=== PATIENT | male | born 1935 | race Caucasian/White ===

== ENCOUNTER 2016-12-14 12:34 | Outpatient (CLI) | payer MEDICARE ==
--- NOTE | 2016-12-14 16:40 | CT ---
CT CERVICAL SPINE NONCONTRAST 12/14/16 HISTORY: Cervical fracture. Abnormal MRI and radiographs. COMPARISON: MRI from [facility] dated 11/23/16. FINDINGS: Posterior displacement of C1 on C2 results in the anterior C1 arch dislocated posteriorly to the exp ected location of the odontoid process. The odontoid process is displaced superiorly and just to the right of midline, now in horizontal orientation. All ununited fracture margins are well corticated. There is compression of the cervicomedullary junction of the spinal cord, narrowed to 0.[address] AP diameter. Bulky ossific bridging is present about the ununited fracture. Disc space narrowing and osteophytosis are present throughout the cervical spine. Cervicothoracic ju nction is intact. There is calcification in the carotid bifurcations. IMPRESSION: 1. 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 Resultant compression of the cervicomedullary junction of the spinal cord is present. Findings correlate with those from recent MRI. No acute fractures are evident. 2. Prominent multilevel degenerative changes throughout the cervical spine. POS: [facility]
== END 2016-12-14 12:35 | disposition home or self-care (01) ==
LOC: TBSIIMAG 12:34
PROVIDERS: ATTEND Neurological Surgery
DX: S12.9XXA Fracture of neck, unspecified, initial encounter (principal); M47.812 Spondylosis without myelopathy or radiculopathy, cervical region
CPT/HCPCS: 72125

== ENCOUNTER 2017-01-03 09:01 | Outpatient (CLI) | payer MEDICARE ==
--- NOTE | 2017-01-03 13:26 | EKG ---
Test Reason : Blood Pressure : / mmHG Vent. Rate : 060 BPM Atrial Rate : 060 BPM P-R Int : 190 ms QRS Dur : 094 ms QT Int : 408 ms P-R-T Axes : 066 -38 025 degrees QTc Int : 408 ms Normal sinus rhythm with sinus arrhythmia Left axis deviation Cannot rule out Anterior infarct , age undetermined Poor anterior R wave progression Abnormal ECG When compared with ECG of 16-MAY-2013 03:15, No significant change was found Confirmed by DR. Vianey REZA (3) on 01/03/2017 1:26:18 PM Referred By: TNE Confirmed By:DR. Vianey REZA
== END 2017-01-03 09:02 | disposition home or self-care (01) ==
LOC: LABBT 09:01
PROVIDERS: ATTEND Neurological Surgery
DX: Z01.818 Encounter for other preprocedural examination (principal); M47.12 Other spondylosis with myelopathy, cervical region
CPT/HCPCS: 93005; 93010

== ENCOUNTER 2017-01-08 05:49 | Day surgery (SDC) | payer MEDICARE ==
[2017-01-03 09:25] VITALS: BMI 21.8
--- NOTE | 2017-01-07 23:19 | HP ---
HISTORY OF PRESENT ILLNESS: Mr. Mcnamara is an 81-year-old man referred to us by Dr. Graham for evaluatio n of cervical spondylosis and myelopathy. Over the last 6-8 months, he has had slowly progressing b ilateral finger numbness and clumsiness. He is also starting to note to lose ability to button aditi ts. He has had progressive balance trouble for the past several years. He has an MRI scan from [facility] reveals chronic fracture of the odontoid process of C2 which looks to be a type 1 fract ure. There has been posterior translation of the fracture site causing severe canal stenosis of the craniocervical junction very indicative of the symptoms that he is experiencing. He has not had any injections or any other treatment, but given the severity of his pathology, I do not believe that I would push for any specific therapy other than the surgical approach and he is understanding of this. PHYSICAL EXAMINATION: He has a positive Keli sign bilaterally. He has weakness in the bilatera l hands, particularly in the opposition of fourth and fifth digits of the hands bilaterally. He has a mostly normal gait with minimal unsteadiness noted. PAST MEDICAL HISTORY: Dupuytrens contracture, basal cell carcinoma, hyperlipidemia, and hypertensio n. MEDICATIONS: Simvastatin, amlodipine, aspirin, latanoprost, and Combigan. ALLERGIES: No known medication allergies. ASSESSMENT: Cervical myelopathy and chronic C2 odontoid fracture. PLAN: Dr. Lake met with the patient, reviewed his imaging and symptoms and ultimately advocated fo r a posterior C1 decompression. He explained to the patient the risks, benefits, and alternatives t o the procedure. The patient expressed understanding and would like to move forward with surgery as discussed. I do believe the patient is mentally competent and capable of making medical decisions for himself and we will move forward with surgery as planned.
[2017-01-08] MEDS ORDERED: CEFAZOLIN/Water 2 GM/20 ML SYRINGE ONE ×2 (06:22→12:13)
[2017-01-08] MEDS ORDERED: Thrombin 5000 UNITS/5 ML VIAL ONE (06:27)
[2017-01-08] MEDS ORDERED: Bacitracin Zinc Ointment 30 gm TUBE ONE (06:27)
[2017-01-08] MEDS ORDERED: Ondansetron HCl/PF 4 MG/2 ML Vial ONE (07:04)
[2017-01-08] MEDS ORDERED: Dexamethasone 20 MG/5 ML VIAL ONE (07:04)
[2017-01-08] MEDS ORDERED: Glycopyrrolate 0.2 MG/ML 5 ML SYRINGE ONE (07:04)
[2017-01-08] MEDS ORDERED: Propofol 200 MG/20 ML VIAL ONE (07:04)
[2017-01-08] MEDS ORDERED: PHENYLEPHRINE-NS 100 MCG/ML 10 ML SYRINGE ONE (07:04)
[2017-01-08] MEDS ORDERED: Lidocaine 2% PF 10 ML AMP (For Epidural Use) ONE (07:04)
[2017-01-08] MEDS ORDERED: Fentanyl 100 MCG/2 ML VIAL ONE ×3 (07:10→08:46)
[2017-01-08] MEDS ORDERED: Bupivacaine PF 0.5% 30 ML VIAL ONE (07:42)
--- NOTE | 2017-01-08 08:05 | OP ---
DATE OF OPERATION: 01/08/2017 SURGEON: Giovanni Lake M.D. WARRANTY COORDINATOR: Alex Jenkins PA-C. INDICATION: Pain and prevent neurologic decline. DIAGNOSES: Cervical stenosis and myelopathy. PROCEDURE: Posterior cervical laminectomy C1. ANESTHESIA: General. TECHNIQUE: The patient was brought into the operating room and placed under general anesthesia. He was carefully placed in a 3-point Smith bam. He was rotated from a supine to a prone positio n and locked on the table in a neutral position. Cervical incision was planned over the occipital-c ervical junction. After prepping and draping and after an appropriate operative pause, the incision was created. Soft tissues were swept away from midline. A self-retaining retractor was placed in the wound for optimal exposure. The posterior arch of C1 was identified and subsequently removed us ing Kerrisons and a rongeur. After decompressing, the spinal canal wound was irrigated. Hemostasis was maintained throughout. The wound was then closed in anatomic layers and a pressure dressing wa s applied. There were no known procedural complications.
[2017-01-08] MEDS ORDERED: Tamsulosin HCl 0.4 MG CAP ONE (08:21)
[2017-01-08] MEDS ORDERED: Ketorolac Tromethamine 30 MG/ML VIAL ONE (09:00)
== END 2017-01-08 12:40 | disposition home or self-care (01) ==
LOC: SDC 05:49 → EDSTATUS 09:00 → SDC 12:40
PROVIDERS: ATTEND Neurological Surgery
PROC: 00NW0ZZ Release Cervical Spinal Cord, Open Approach (ICD-10-PCS; principal; 2017-01-08)
DX: M48.02 Spinal stenosis, cervical region (principal); E78.5 Hyperlipidemia, unspecified; I10 Essential (primary) hypertension; Z79.82 Long term (current) use of aspirin
CPT/HCPCS: J1100; J1885; J2001; J2405; J2704; J3010; S0020

== ENCOUNTER 2017-11-28 08:08 | Day surgery (SDC) | payer MEDICARE ==
[2017-11-27 13:34] VITALS: BMI 21.1
[2017-11-28] MEDS ORDERED: Oxymetazoline HCl 0.05% ( 15 ML ) ONE ×2 (08:22→09:42)
[2017-11-28 08:32] LABS: Hemoglobin 13.2 g/dL (14.0-18.0)
[2017-11-28 08:50] LABS: Anion Gap 12 mmol/L (10-20); BUN (Urea Nitrogen) 13 mg/dL (8.4-25.7); Calc. Creatinine Clearance 60 mL/min (70-130); Calcium 9.8 mg/dL (7.8-10.44); Carbon Dioxide 25 mmol/L (23-31); Chloride 105 mmol/L (98-107); Estimated GFR-MDRD 75; Glucose 97 mg/dL (83-110); Potassium 3.9 mmol/L (3.5-5.1); Sodium 138 mmol/L (136-145)
[2017-11-28] MEDS ORDERED: Lidocaine 1% w/Epinephrine 1:100K 30 ML VIAL ONE (09:42)
[2017-11-28] MEDS ORDERED: Ondansetron HCl/PF 4 MG/2 ML Vial ONE (09:46)
[2017-11-28] MEDS ORDERED: Succinylcholine Chloride 20 MG/ML 10 ml SYRINGE FS ONE (09:46)
[2017-11-28] MEDS ORDERED: Dexamethasone 20 MG/5 ML VIAL ONE (09:46)
[2017-11-28] MEDS ORDERED: PROPOFOL 200 MG/20 ML VIAL ONE (09:46)
[2017-11-28] MEDS ORDERED: Lidocaine 1% PF 5 ML VIAL ONE (09:46)
[2017-11-28] MEDS ORDERED: Fentanyl 100 MCG/2 ML VIAL ONE (09:46)
[2017-11-28] MEDS ORDERED: Famotidine/PF 20 mg/2ml Vial ONE (09:46)
[2017-11-28] MEDS ORDERED: Hydrocodone-Acetamin 15 ML UDCUP ONE (11:49)
--- NOTE | 2017-11-28 22:30 | OP ---
DATE OF PROCEDURE: 11/28/2017 PREOPERATIVE DIAGNOSES: 1. Chronic rhinosinusitis. 2. Bilateral inferior turbinate hypertrophy. 3. Nasal obstruction. POSTOPERATIVE DIAGNOSES: 1. Chronic rhinosinusitis. 2. Bilateral inferior turbinate hypertrophy. 3. Nasal obstruction. PROCEDURES: 1. Bilateral endoscopic sinus surgery, total ethmoidectomies. 2. Bilateral endoscopic sinus surgery, maxillary antrostomy. 3. Bilateral endoscopic sinus surgery, frontal sinusotomies. 4. Bilateral endoscopic sinus surgery, sphenoidotomies. 5. Bilateral inferior turbinate submucosal resection. SURGEON: Rajiv Rojas M.D. ESTIMATED BLOOD LOSS: 20 mL COMPLICATIONS: None. ANESTHESIA: GETA. PROCEDURE IN DETAIL: The patient was taken to the operating room and placed supine on the table. Ge neral endotracheal anesthesia was obtained by the Anesthesia staff. The tube was secured in the left lower lip. The patient was then placed in the beach chair position. Following this, Afrin pledgets were placed in the nasal cavity and the patient was prepped and draped for standard nasal procedures . Following this, the Afrin pledgets were removed. A 0-degree endoscope was used to examine the batsheva al cavity as well as make injections with 1% lidocaine with 1:100,000 epinephrine into the inferior t urbinates, the middle turbinates and the lateral nasal wall bilaterally. Following this, the Newfolden e levator was used to medialize the middle turbinate bilaterally, exposing the uncinate process bilater ally. Following this, the uncinate process was anteriorly fractured using the ball-ended probe and w as then removed using the straight microdebrider and upbiting Blakesley forceps. Following this, the natural maxillary sinus ostia was identified bilaterally using the ball-ended probe. The maxillary ostium was then widened using the microdebrider and straight Blakesley forceps bilaterally. Followin g this, the ethmoidal bulla was identified and was punctured on its medial and inferior aspect with t he straight microdebrider bilaterally. The microdebrider and biting Blakesley forceps were used to r emove the ethmoidal bulla as well as open the anterior ethmoidal cells bilaterally. Following this, the grand lamella was identified and was then punctured into the posterior ethmoidal cells using the straight microdebrider and working from posterior to anterior, the ethmoidal cells were opened in a m ucosal-sparing technique. Following this, the sphenoid sinuses were approached through the previous ethmoidectomies . Following this, the ethmoidal cells were opened from posterior to anterior us ing the microdebrider. Following this, the sphenoid sinus ostium was identified and was punctured us ing the microdebrider bilaterally. Following this, the sphenoid ostia were widened medially and infe riorly using the microdebrider. Following this, the 45-degree scope and the curved microdebrider yoel waldron were used to further open the frontal recess cells bilaterally, exposing the frontal sinus ostium. Following this, the frontal sinus ostium was widened using the curved microdebrider bilaterally. F ollowing this, the inferior turbinates were punctured on their anterior and inferior aspects with the submucosal microdebrider and submucosal resection was performed bilaterally of the anterior and infe rior portions of the inferior turbinate. The patient tolerated the procedure well. Upon this, the n cherry cavity was irrigated and MeroPacks were placed within the middle meatus bilaterally. The patien t tolerated the procedure well.
--- NOTE | 2017-12-02 17:13 | EKG ---
Test Reason : PREOP Blood Pressure : / mmHG Vent. Rate : 056 BPM Atrial Rate : 056 BPM P-R Int : 198 ms QRS Dur : 096 ms QT Int : 434 ms P-R-T Axes : 073 -55 044 degrees QTc Int : 418 ms Sinus bradycardia with sinus arrhythmia Left anterior fascicular block Abnormal ECG When compared with ECG of 03-JAN-2017 09:31, No significant change was found Confirmed by SHIRAZ DEMPSEY (2) on 12/02/2017 5:12:28 PM Referred By: TOMAS Confirmed By:SHIRAZ DEMPSEY
== END 2017-11-28 12:42 | disposition home or self-care (01) ==
LOC: SDC 08:08
PROVIDERS: ATTEND Otolaryngology Plastic Surgery within the Head & Neck
PROC: 09TV8ZZ Resection of Left Ethmoid Sinus, Via Natural or Artificial Opening Endoscopic (ICD-10-PCS; principal; 2017-11-28)
PROC: 09TU8ZZ Resection of Right Ethmoid Sinus, Via Natural or Artificial Opening Endoscopic (ICD-10-PCS; 2017-11-28)
DX: J32.4 Chronic pansinusitis (principal); J34.3 Hypertrophy of nasal turbinates; J33.0 Polyp of nasal cavity; Z87.891 Personal history of nicotine dependence
CPT/HCPCS: 36415; 80048; 85014; 85018; 93005; 93010; J0131; J1100; J2001; J2405; J2704; J3010; S0028